=== PATIENT | female | born 1975 | race Caucasian/White ===

== ENCOUNTER 2019-04-14 14:25 | Emergency (ER) | payer MEDICAID ==
[~2019-04-14] VITALS: Ht 162.6 cm; Wt 86.6 kg
[~2019-04-14 14:25] MED LIST: ACET-141 PO; BENA10TA6 PO; DOCU-144 PO; FAMO20TA18 PO; HYDR-4011 PO; IBUP-1542 PO
[2019-04-14 14:37] VITALS: Ht 162.6 cm; Wt 86.6 kg
[2019-04-14] MEDS ORDERED: ONDANSETRON 4 MG INJ IV STA (17:55)
[2019-04-14] MEDS ORDERED: KETOROLAC 30 MG INJ IV STA (17:55)
[2019-04-14] MEDS ORDERED: morphine 2 MG INJ IV STA (17:55)
[2019-04-14 19:08] VITALS: BP 138/89; PULSE 81; RESP 19
== END 2019-04-14 19:22 | disposition home or self-care (01) ==
LOC: E/R 14:25
DX: K80.50 Calculus of bile duct without cholangitis or cholecystitis without obstruction (principal); N83.201 Unspecified ovarian cyst, right side; I10 Essential (primary) hypertension
CPT/HCPCS: 36415; 74176; 76705; 76856; 80053; 81001; 83690; 84703; 85025; 96374; 96375; J1885; J2270; J2405; Z7502